=== PATIENT | male | born 1950 | race Caucasian/White ===

== ENCOUNTER 2016-12-18 12:35 | Emergency (ER) | payer OTHER, BC ==
[~2016-12-18] VITALS: Ht 185.4 cm; Wt 94.0 kg
[2016-12-18] MEDS ORDERED: ROSUVASTATIN CA10 MG PO (15:01)
[2016-12-18] MEDS ORDERED: DIOVAN HCT 31 TABLE1 PO (15:02)
[2016-12-18] MEDS ORDERED: TRULICITY0.75 MG/0. SC (15:02)
[2016-12-18] MEDS ORDERED: GLUCOPHAGE1000 MG PO (15:04)
[2016-12-18 16:38] VITALS: BP 162/84
== END 2016-12-18 16:38 | disposition home or self-care (01) ==
LOC: EME 12:35
DX: M79.1 Myalgia (principal); T46.6X5A Adverse effect of antihyperlipidemic and antiarteriosclerotic drugs, initial encounter; I10 Essential (primary) hypertension; E11.9 Type 2 diabetes mellitus without complications; Z79.84 Long term (current) use of oral hypoglycemic drugs; E78.5 Hyperlipidemia, unspecified; Z82.49 Family history of ischemic heart disease and other diseases of the circulatory system; Z82.3 Family history of stroke
CPT/HCPCS: 93971; 99281; 99283